=== PATIENT | male | born 1995 | race Caucasian/White ===

== ENCOUNTER → 2022-03-24 | Outpatient (CLI) | payer BC ==
[~2022-03-24] MED LIST: ACETAMINOPHEN/CODEINE 300MG - 30MG TAB ONE; LIDOCAINE HCL 1% LOCAL INJ 20 ML VIAL ONE
[2022-03-24 12:17] LABS: HEMOGLOBIN 16.6 g/dL (14.0-18.0)
[2022-03-24 12:28] LABS: INR 0.89; PROTHROMBIN TIME 12.9 seconds (11.9-14.5)
[2022-03-24 12:29] LABS: PARTIAL THROMBOPLASTIN TIME 28.5 seconds (23.8-35.5)
[2022-03-24 14:16] LABS: APPEARANCE,CSF CLEAR (CLEAR); COLOR,CSF COLORLESS (COLORLESS)
[2022-03-24 15:31] LABS: TUBE NUMBER 3
[2022-03-24 15:33] LABS: WHITE BLOOD CELL,CSF 0 cells/uL (0-5)
== END ==
LOC: DX 11:53
PROVIDERS: ATTEND Internal Medicine
DX: H47.10 Unspecified papilledema (principal)
CPT/HCPCS: 36415; 62328; 82945; 84157; 85014; 85049; 85610; 85730; 87070; 87205; 89051; J2001